=== PATIENT | male | born 1970 | race Caucasian/White ===

== ENCOUNTER 2018-09-21 20:40 | Emergency (ER) | payer BC, OTHER ==
[~2018-09-21] VITALS: Ht 182.9 cm; Wt 105.5 kg
[2018-09-21 20:42] VITALS: Ht 182.9 cm; Wt 105.5 kg
[2018-09-21] MEDS ORDERED: KETOROLAC 30 MG INJ IM STA (21:40)
[2018-09-21] MEDS ORDERED: ONDANSETRON (ODT) 4 MG TAB ODT STA (21:53)
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
[2018-09-22] MEDS ORDERED: IBUP-1542 PO (00:02)
[2018-09-22] MEDS ORDERED: ONDA4TAB14 PO (00:02)
[2018-09-22 00:19] VITALS: BP 112/82; PULSE 70; RESP 20
== END 2018-09-22 00:20 | disposition home or self-care (01) ==
LOC: FTE 20:40
DX: S50.02XA Contusion of left elbow, initial encounter (principal); V49.9XXA Car occupant (driver) (passenger) injured in unspecified traffic accident, initial encounter
CPT/HCPCS: 73080; 96372; 99284; J1885